=== PATIENT | male | born 1960 | race African-American/Black ===

== ENCOUNTER 2024-01-26 07:43 | Emergency (ER) | payer BC, OTHER ==
[~2024-01-26] VITALS: Ht 185.4 cm; Wt 82.0 kg
[2024-01-26 07:45] VITALS: O2SAT 99
[2024-01-26 10:10] LABS: BASOPHILS % 0.2 % (0.0-2.0); EOSINOPHILS % 0.2 % (0.0-5.0); HEMATOCRIT. 45.8 % (42.0-52.0); HEMOGLOBIN. 15.2 g/dL (14.0-18.0); LYMPHOCYTES % 8.1 % (20.0-50.0); MEAN CORPUSCULAR HEMOGLOBIN 29.9 pg (28.0-32.0); MEAN CORPUSCULAR HGB CONC 33.2 g/dL (31.0-37.0); MEAN PLATELET VOLUME 7.2 fl (7.4-10.4); MONOCYTES % 3.4 % (2.0-8.0); NEUTROPHILS % 88.1 % (40.0-76.0); PLATELET 337 x1000/uL (130-400); RED BLOOD CELL COUNT 5.09 mill/uL (4.7-6.1); RED CELL DISTRIBUTION WIDTH 14.7 % (11.6-14.6); WHITE BLOOD COUNT 9.3 x1000/uL (4.5-11.0)
[2024-01-26 10:19] LABS: INR 0.9; PROTHROMBIN TIME 10.2 sec (9.6-11.0)
[2024-01-26 10:24] LABS: CARBON DIOXIDE 26 mEq/L (21-32); CHLORIDE 105 mEq/L (98-107); POTASSIUM 4.5 mEq/L (3.5-5.1); SODIUM 138 mEq/L (136-145)
[2024-01-26 10:25] LABS: CALCIUM 9.5 mg/dL (8.7-10.4)
[2024-01-26 10:29] LABS: CREATININE 0.9 mg/dL (0.6-1.3); GLUCOSE 141 mg/dL (70-105)
[2024-01-26 10:30] LABS: UREA NITROGEN BLOOD 13 mg/dL (9-23)
[2024-01-26 10:31] LABS: ALANINE AMINOTRANSFERASE 18 IU/L (10-49); ALBUMIN 4.7 g/dL (3.2-4.8); ASPARTATE AMINOTRANSFERASE 17 IU/L (<34)
[2024-01-26 10:32] LABS: BILIRUBIN TOTAL 1.2 mg/dL (0.1-1.0); PROTEIN TOTAL 7.1 g/dL (6.0-8.3)
[2024-01-26] MEDS: SODIUM CHLORIDE 0.9% 1,000 ML IV ONE (10:55)
[2024-01-26 11:34] LABS: TROPONIN I HIGH SENSITIVITY 22 ng/L (3.0-53)
[2024-01-26] MEDS ORDERED: LABETALOL HCL VIAL 20 MG/4 ML VIAL IV ONE (12:45)
[2024-01-26] MEDS: LABETALOL 5MG/ML SYR 20 MG/4 ML SYRINGE IV NR (13:11)
[2024-01-26 13:15] LABS: CLARITY URINE CLEAR (CLEAR); COLOR URINE YELLOW (YELLOW); GLUCOSE URINE 3+ (NEGATIVE); KETONES URINE 1+ (NEGATIVE); LEUKOCYTE ESTERASE URINE NEGATIVE (NEGATIVE); NITRITE URINE NEGATIVE (NEGATIVE); OCCULT BLOOD URINE NEGATIVE (NEGATIVE); PROTEIN URINE NEGATIVE (NEGATIVE); SPECIFIC GRAVITY URINE 1.023 (1.005-1.030); UROBILINOGEN URINE 0.2 E.U./dL (0.2-1.0)
[2024-01-26 13:33] VITALS: BP 157/80; PULSE 85; RESP 18; TEMP 98.8
[2024-01-26 13:34] LABS: RBC URINE NONE SEEN /hpf (0-2); WBC URINE 0-2 /hpf (0-2)
[2024-01-26 13:35] LABS: BACTERIA URINE RARE; SQUAMOUS EPITHELIAL CELL URINE NONE SEEN /lpf (RARE/1+); YEAST URINE NONE SEEN
[2024-01-26 15:39] LABS: TROPONIN I HIGH SENSITIVITY 20 ng/L (3.0-53)
== END 2024-01-26 16:20 | disposition home or self-care (01) ==
LOC: ER 07:43 → CANBEDREQ 16:01 → ER 16:20
DX: I10 Essential (primary) hypertension (principal); R00.0 Tachycardia, unspecified; E11.9 Type 2 diabetes mellitus without complications
CPT/HCPCS: 80053; 81003; 82962; 83690; 84443; 85025; 85610; 84484; 36415; 70450; 93005; 96361; 96374; 99285; J3490; J7030; Z7610